=== PATIENT | female | born 1990 | race Caucasian/White ===

== ENCOUNTER 2016-07-07 19:04 | Observation (INO) | payer OTHER ==
[2016-07-07] VITALS (56 sets, daily range): BP systolic 108–114; BP diastolic 75–81; PULSE 100–102; TEMP 97.4; O2SAT 94–98
[~2016-07-07] VITALS: Ht 170.2 cm; Wt 108.9 kg
[~2016-07-07 19:04] MED LIST: ABILIFY2 MG PO; ATARAX 25MG25 MG/TAB PO; FLOVENT DI50 MCG/Act IH; IBU800 M1 PO; INDOCIN 25MG CA25 MG PO; PERCOCET 325 MG1 TA2 PO; PREDNISONE 5MG5 MG PO; PREDNISONE10 MG PO; WELLBUTRIN XL300 M1 PO; ZYRTEC10MGSGL PO
[2016-07-07] MEDS ORDERED: PRENATAL1 TA7 PO (22:16)
[2016-07-07] MEDS ORDERED: ZOFRAN8 MG PO (22:18)
[2016-07-07] MEDS ORDERED: QUALITY CHOICE PO (22:22)
[2016-07-07 22:30] LABS: B-TYPE NATRIURETIC PEPTIDE 95 pg/mL (0-125); TROPONIN-I < 0.012 ng/mL (0.000-0.034)
[2016-07-08 00:01] VITALS: BP 119/63; PULSE 89; TEMP 98.3
[2016-07-08 04:02] VITALS: BP 121/74; PULSE 97; TEMP 97.8
[2016-07-08 06:52] LABS: PH 6 (5-8); URINE APPEARANCE Clear; URINE BACTERIA Rare /hpf; URINE BILIRUBIN Negative (NEGATIVE); URINE BLOOD Negative (NEGATIVE); URINE COLOR Amber; URINE GLUCOSE 3+ (NEGATIVE); URINE KETONE Trace (NEGATIVE); URINE RBC 0-2 /hpf; URINE UROBILINOGEN Negative (NEGATIVE); URINE WBC 0-2 /hpf
[2016-07-08 07:35] LABS: HEMATOCRIT 37.4 % (37.0-47.0); HEMOGLOBIN 12.2 g/dl (12.5-16.0); MEAN CELL VOLUME 88 fl (80.0-100.0); MEAN CORPUSCULAR HEMOGLOBIN 29 pg (27.0-31.0); MEAN CORPUSCULAR HGB CONC 33 g/dl (33.0-37.0); MEAN PLATELET VOLUME 11.6 fl (7.4-10.4); PLATELET COUNT 234 K/mm3 (130-400); RED BLOOD COUNT 4.25 M/mm3 (4.10-5.30); REDCELL DISTRIBUTION WIDTH-CV 13.1 % (11.5-14.5); WHITE BLOOD COUNT 14.8 K/mm3 (4.8-10.8)
[2016-07-08 07:40] LABS: ADD PATHOLOGY DIFF REVIEW NO
[2016-07-08 07:45] VITALS: BP 119/70; PULSE 74; TEMP 98.8
[2016-07-08 07:46] LABS: ADJUSTED CALCIUM 9.5 mg/dL (8.4-10.2); BILIRUBIN,TOTAL 0.6 mg/dL (0.0-1.0); CALCIUM 9.5 mg/dL (8.4-10.2); CREATININE, serum 0.69 mg/dL (0.52-1.25); POTASSIUM 3.7 mmol/L (3.4-5.0); TOTAL PROTEIN 7.2 gm/dL (6.4-8.2)
[2016-07-08 07:59] LABS: BAND 18 % (0-10); METAMYELOCYTE 2 % (0-0); NEUTROPHILS 74 % (42.0-75.2); TOTAL CELLS COUNTED 100
[2016-07-08 12:01] VITALS: BP 119/72; PULSE 97; TEMP 98
[2016-07-08 15:25] VITALS: BP 117/66; PULSE 95
[2016-07-08 20:45] VITALS: BP 119/62; PULSE 68; TEMP 98.1
[2016-07-09 00:14] VITALS: BP 105/62; PULSE 85; TEMP 98.2
[2016-07-09 04:42] VITALS: BP 117/66; PULSE 63; TEMP 98.1
[2016-07-09 08:13] VITALS: BP 110/79; PULSE 57; TEMP 98.5
[2016-07-09] MEDS ORDERED: PROTONIX 40MG T40 MG PO (10:01)
[2016-07-09] MEDS ORDERED: PREDNISONE20 MG PO (10:03)
[2016-07-09] MEDS ORDERED: COLCRYS0.6 MG PO (10:04)
[2016-07-09] MEDS ORDERED: FERROUS SU325 MG/TAB PO (10:36)
== END 2016-07-09 11:40 | disposition home or self-care (01) ==
LOC: ICU 19:04 → MEDICAL 19:04 → ICU 19:04 → MEDICAL 19:04 → ICU 20:10 → MEDICAL 20:10
PROVIDERS: Internal Medicine
DX: I30.9 Acute pericarditis, unspecified (principal); D72.828 Other elevated white blood cell count; R94.31 Abnormal electrocardiogram [ECG] [EKG]; D50.9 Iron deficiency anemia, unspecified; R06.00 Dyspnea, unspecified
CPT/HCPCS: G0378; J7030; J7512

== ENCOUNTER 2017-01-28 21:07 | Inpatient (IN) | payer OTHER ==
[~2017-01-28] VITALS: Ht 170.2 cm; Wt 118.7 kg
[~2017-01-28 21:07] MED LIST changes: +COLCRYS0.6 MG PO; +FERROUS SU325 MG/TAB PO; +PREDNISONE20 MG PO; +PRENATAL1 TA7 PO; +PROTONIX 40MG T40 MG PO; +QUALITY CHOICE PO; +ZOFRAN8 MG PO
[2017-01-28 22:21] VITALS: BP 120/70; PULSE 107; TEMP 99.3
[2017-01-29 04:25] VITALS: BP 96/62; PULSE 96; TEMP 98.1
[2017-01-29 07:31] VITALS: BP 101/60; PULSE 98; TEMP 98.3
[2017-01-29 09:42] LABS: MEAN CELL VOLUME 92 fl (80.0-100.0); MEAN CORPUSCULAR HGB CONC 32 g/dl (33.0-37.0); MEAN PLATELET VOLUME 10.4 fl (7.4-10.4); PLATELET COUNT 286 K/mm3 (130-400); RED BLOOD COUNT 3.91 M/mm3 (4.10-5.30); REDCELL DISTRIBUTION WIDTH-CV 12.2 % (11.5-14.5)
[2017-01-29 09:48] LABS: CALCIUM 8.6 mg/dL (8.4-10.2); CREATININE, serum 0.75 mg/dL (0.52-1.25); POTASSIUM 3.5 mmol/L (3.4-5.0)
[2017-01-29 09:50] LABS: ADD PATHOLOGY DIFF REVIEW NO; HEMOGLOBIN 11.4 g/dl (12.5-16.0); MEAN CORPUSCULAR HEMOGLOBIN 29 pg (27.0-31.0); WHITE BLOOD COUNT 20.9 K/mm3 (4.8-10.8)
[2017-01-29 11:54] LABS: BAND 27 % (0-10); NEUTROPHILS 61 % (42.0-75.2); PLATELET ESTIMATE NORMAL (NORMAL); TOTAL CELLS COUNTED 100
[2017-01-29 12:04] VITALS: BP 107/66; PULSE 96; TEMP 97.9
[2017-01-29] MEDS ORDERED: KINERET100 MG/0.6 SQ (15:51)
[2017-01-29 15:58] VITALS: BP 116/60; PULSE 88; TEMP 97.9
[2017-01-29 20:04] VITALS: BP 112/68; PULSE 87; TEMP 98.4
[2017-01-30] VITALS (7 sets, daily range): BP systolic 106–124; BP diastolic 58–72; PULSE 59–93; TEMP 97.7–98.7
[2017-01-30 09:45] LABS: MEAN CELL VOLUME 90 fl (80.0-100.0); MEAN CORPUSCULAR HGB CONC 33 g/dl (33.0-37.0); MEAN PLATELET VOLUME 10.6 fl (7.4-10.4); PLATELET COUNT 339 K/mm3 (130-400); RED BLOOD COUNT 4.06 M/mm3 (4.10-5.30); REDCELL DISTRIBUTION WIDTH-CV 11.9 % (11.5-14.5)
[2017-01-30 09:53] LABS: HEMATOCRIT 36.4 % (37.0-47.0); HEMOGLOBIN 11.9 g/dl (12.5-16.0); MEAN CORPUSCULAR HEMOGLOBIN 29 pg (27.0-31.0); WHITE BLOOD COUNT 25.9 K/mm3 (4.8-10.8)
[2017-01-30 09:54] LABS: ADD PATHOLOGY DIFF REVIEW NO
[2017-01-30 09:56] LABS: CALCIUM 9.4 mg/dL (8.4-10.2); CREATININE, serum 0.64 mg/dL (0.52-1.25); POTASSIUM 3.6 mmol/L (3.4-5.0)
[2017-01-30 11:08] LABS: BAND 14 % (0-10); NEUTROPHILS 83 % (42.0-75.2); PLATELET ESTIMATE INCREASED (NORMAL); TOTAL CELLS COUNTED 100
[2017-01-31 02:37] VITALS: BP 131/68; PULSE 79; TEMP 98
[2017-01-31 07:36] LABS: CALCIUM 9.4 mg/dL (8.4-10.2); CREATININE, serum 0.64 mg/dL (0.52-1.25); POTASSIUM 3.8 mmol/L (3.4-5.0)
[2017-01-31 08:44] VITALS: BP 122/69; PULSE 78; TEMP 97.4
[2017-01-31 09:33] LABS: HEMATOCRIT 37.8 % (37.0-47.0); HEMOGLOBIN 12.1 g/dl (12.5-16.0); MEAN CELL VOLUME 91 fl (80.0-100.0); MEAN CORPUSCULAR HEMOGLOBIN 29 pg (27.0-31.0); MEAN CORPUSCULAR HGB CONC 32 g/dl (33.0-37.0); MEAN PLATELET VOLUME 11.1 fl (7.4-10.4); PLATELET COUNT 406 K/mm3 (130-400); RED BLOOD COUNT 4.16 M/mm3 (4.10-5.30); REDCELL DISTRIBUTION WIDTH-CV 11.9 % (11.5-14.5)
[2017-01-31 09:36] LABS: ADD PATHOLOGY DIFF REVIEW NO; WHITE BLOOD COUNT 23.8 K/mm3 (4.8-10.8)
[2017-01-31 10:39] LABS: BAND 31 % (0-10); NEUTROPHILS 62 % (42.0-75.2); TOTAL CELLS COUNTED 100
[2017-01-31 10:40] LABS: PLATELET ESTIMATE INCREASED (NORMAL)
[2017-01-31 11:58] VITALS: BP 113/80; PULSE 62; TEMP 97.5
[2017-01-31] MEDS ORDERED: IBU800 M1 PO (14:32)
[2017-01-31] MEDS ORDERED: PREDNISONE20 MG PO (14:52)
[2017-01-31 15:21] LABS: ADJUSTED CALCIUM 9.9 mg/dL (8.4-10.2); ALBUMIN 3.4 gm/dL (3.5-5.0); BILIRUBIN,TOTAL 0.4 mg/dL (0.0-1.0); TOTAL PROTEIN 7.1 gm/dL (6.4-8.2)
== END 2017-01-31 16:45 | disposition home or self-care (01) | DRG 315 ==
LOC: MEDICAL 21:07
PROVIDERS: Family Medicine; Nurse Practitioner
DX: I30.9 Acute pericarditis, unspecified (principal); J90 Pleural effusion, not elsewhere classified; Z79.52 Long term (current) use of systemic steroids
CPT/HCPCS: 99222-AI; 99232-AI; 99238; J1170; J1940; J2930; J7030; J7050

== ENCOUNTER → 2017-05-03 | Outpatient (CLI) | payer OTHER ==
[~2017-05-03] VITALS: Ht 170.2 cm; Wt 121.3 kg
[2017-05-03] VITALS (12 sets, daily range): BP systolic 103–133; BP diastolic 54–79; PULSE 65–102
[~2017-05-03] MED LIST changes: +KINERET100 MG/0.6 SQ
[2017-05-03 07:26] LABS: PROTHROMBIN TIME 11.7 SECONDS (9.7-12.8)
== END ==
LOC: COL.RAD 04-13 09:00
PROVIDERS: Physician Assistant
DX: R74.8 Abnormal levels of other serum enzymes (principal)
CPT/HCPCS: J2250